=== PATIENT | female | born 1950 | race Caucasian/White ===

== ENCOUNTER 2021-07-14 23:35 | Observation (INO) | payer SELFPAY ==
[~2021-07-14] VITALS: Ht 185.4 cm; Wt 154.0 kg
[2021-07-14] MEDS ORDERED: DEXAMETHASONE 4 MG TABLET PO ONE (23:45)
[2021-07-14] MEDS ORDERED: IPRATRPIUM/ALBUTEROL 0.5/2.5MG 3 ML NEBU. NEB ONE (23:45)
--- NOTE | 2021-07-14 23:49 | PHYS DOC ---
Adult General HPI HPI Patient is a 70-year-old female with a past medical history significant for A. fib on Xarelto, COPD on 2 to 4 L of oxygen at home, CAD, with recent discharge from the hospital about 10 days ago after being in for pneumonia who presents to the emergency department with a chief complaint of productive cough and shortne ss of breath that started this morning. Denies recent traumas, travels, fevers, abdominal pain, nausea, vomiting, diarrhea, dysuria, hematuria or blood in the stool. States she was Covid negative at that time she was in the hospital. Review of Systems Review of Systems Review of systems otherwise unremarkable except noted in HPI Physical Exam Physical Exam Constitutional: Well developed, well nourished, no acute distress, non-toxic appearance. [] HENT: Normocephalic, atraumatic, bilateral external ears normal, oropharynx moist, no oral exudates, nose normal. [] Eyes: conjunctiva normal, no discharge. [] Neck: Normal range of motion, no tenderness, supple, no stridor. [] Cardiovascular:Heart rate regular rhythm, no murmur [] Lungs & Thorax: Bilateral, global rhonchi with end expiratory wheeze Abdomen: soft, no tenderness, no masses, no pulsatile masses. [] Skin: Warm, dry, no erythema, no rash. [] Back: No tenderness, no CVA tenderness. [] Extremities: No tenderness, no cyanosis, no clubbing, ROM intact, no edema. [] Neurologic: Alert and oriented X 3, no focal deficits noted. [] Psychologic: Affect normal, judgement normal, mood normal. [] EKG EKG [] Radiology/Procedures Radiology/Procedures [] Heart Score C/O Chest Pain: No Risk Factors: Risk Factors: DM, Current or recent (<one month) smoker, HTN, HLP, family his tory of CAD, obesity. Risk Scores: Risk Factors: DM, Current or recent (<one month) smoker, HTN, HLP, family history of CAD, obesity. Course & Med Decision Making Course & Med Decision Making Patient is a 70-year-old female who presents with a day of productive cough and shortness of breath, and states that she is out of oxygen at home and it is not supposed to be delivered until tomorrow. Vital signs notable for tachypnea and hypoxia on room air, patient on her home 2 L saturating at 96%. EKG noted above with no STEMI. Troponin normal. Laboratory analysis not concerning. Urinalysis not suggestive of urinary tract infection. Covid negative. History and presentation suggestive of COPD exacerbation. Given breathing treatment, steroids and doxycycline. Discussed all findings with patient and recommended admission to [facility] for continued evaluation, and treatment with oxygen and COPD exacerbation until she is able to get her oxygen at home. Patient grateful, verbalized understanding and agreed with plan of admission. [] Dragon Disclaimer Dragon Disclaimer This electronic medical record was generated, in whole or in part, using a voice recognition dictation system. Departure Departure: Impression: Primary Impression: COPD exacerbation Additional Impression: Oxygen dependent Disposition: ADMITTED INPATIENT Admitting Physician: Jr Garvin Condition: STABLE Problem Qualifiers CONRADO WALLACE MD Jul 14, 2021 23:49
--- NOTE | 2021-07-15 00:30 | EKG ---
[address] [address] Test Date: 2021-07-14 Test Time: 23:54:13 Pat Name: BELLA PATEL Department: Room: Gender: F Information Technology Specialist: RAKESH : 1950 Requested By: CONRADO WALLACE Order Number: [id number] Reading MD: Measurements Intervals [place] Rate: 63 P: 220 [place]: 118 QRS: -20 QRSD: 146 T: 18 QT: 464 QTc: 478 Interpretive Statements SINUS RHYTHM LEFTWARD AXIS RIGHT BUNDLE BRANCH BLOCK RVH WITH REPOLARIZATION ABNORMALITY ABNORMAL ECG RI6.02 No previous ECG available for comparison
[2021-07-15 00:39] LABS: BASO # 0.1 x10^3/uL (0.0-0.2); BASO % 1 % (0-3); EOS # 0.1 x10^3/uL (0.0-0.7); EOS % 1 % (0-3); HEMATOCRIT 35.8 % (36.0-47.0); HEMOGLOBIN 11.6 g/dL (12.0-15.5); LYMPH # 1.3 x10^3/uL (1.0-4.8); LYMPH % 18 % (24-48); MEAN CORPUSCULAR HEMOGLOBIN 31 pg (25-35); MEAN CORPUSCULAR HGB CONC 32 g/dL (31-37); MEAN CORPUSCULAR VOLUME 96 fL (79-100); MONO # 0.7 x10^3/uL (0.0-1.1); MONO % 9 % (0-9); NEUT # 5.4 x10^3uL (1.8-7.7); NEUT % 71 % (31-73); PLATELET COUNT 163 x10^3/uL (140-400); RED BLOOD COUNT 3.73 x10^6/uL (3.50-5.40); RED CELL DISTRIBUTION WIDTH 14.3 % (11.5-14.5); WHITE BLOOD COUNT 7.6 x10^3/uL (4.0-11.0)
[2021-07-15 00:48] LABS: CALCIUM 8.4 mg/dL (8.5-10.1); CREATININE 1.2 mg/dL (0.6-1.0); GFR 44.3; POTASSIUM 4.7 mmol/L (3.5-5.1)
[2021-07-15 00:54] LABS: ALBUMIN 2.7 g/dL (3.4-5.0); ALBUMIN/GLOBULIN RATIO 0.8 (1.0-1.7); TOTAL BILIRUBIN 0.3 mg/dL (0.2-1.0)
[2021-07-15] MEDS ORDERED: IV RINGERS SOLUTION,LACTATED 1,000 ML IV ONE (01:15)
[2021-07-15 01:27] LABS: BILIRUBIN,URINE NEG (NEG); CLARITY,URINE HAZY; COLOR,URINE YELLOW; GLUCOSE,URINE NEG (NEG)
[2021-07-15 01:28] LABS: BACTERIA,URINE MOD /HPF (0-FEW); NITRITE,URINE NEG (NEG); RBC,URINE 0 /HPF (0-2); SQUAMOUS EPITHELIAL CELL,UR OCC /LPF
[2021-07-15] MEDS ORDERED: DOXYCYCLINE HYCLATE 100 MG TABLET PO ONE (02:00)
--- NOTE | 2021-07-15 03:09 | RAD ---
CT chest without contrast: Reason for examination: Short of breath with productive cough. Helical images were obtained through the chest with no intravenous contrast administered. Reconstruct ion was performed in sagittal and coronal planes. Exposure: One or more of the following individualized dose reduction techniques were utilized for thi s examination: 1. Automated exposure control 2. Adjustment of the mA and/or kV according to patient size 3. Use of iterative reconstruction technique. There is a small hypodense lesion in the right lobe thyroid gland which may represent a small cyst. T he trachea and mainstem bronchi show no intraluminal lesions. No abnormality seen at the esophagus. T he thoracic aorta shows arteriosclerotic vascular calcification and some dilatation of the ascending thoracic aorta at 3.9 cm. The heart size is upper normal with no pericardial effusion. Lung alberto sh ow changes consistent with some atelectasis posteriorly at the left lung base. There are also multipl e noncalcified pulmonary nodules present with the largest nodule measuring 1.6 cm in size located in the right upper lobe. No consolidated infiltrates or pleural effusions are seen. No pneumothorax is e vident. No focal abnormalities are seen in the liver or spleen. No abnormalities of seen at the adrenal gland s. There does appear to be an anterior abdominal wall hernia containing bowel. IMPRESSION: Multiple noncalcified pulmonary nodules bilaterally with the largest in the right upper lobe measurin g 1.6 cm in size. Atelectasis at the left lung base. Large anterior wall hernia containing bowel. Electronically signed by: Katy Youssef MD (07/15/2021 3:07 AM) AWAIS
[2021-07-15 05:00] VITALS: BP 166/95
--- NOTE | 2021-07-15 07:25 | RAD ---
XR CHEST 1V INDICATION: SOB . COMPARISON STUDY: None. FINDINGS: Lungs: Normal lung volume. Mild bibasilar opacities. There are a couple of pulmonary nodules, better evaluated on same-day CT chest. The tracheobronchial tree and hilar structures are normal. Pleura: No pleural effusion or pneumothorax. Heart and Mediastinum: Cardiomegaly. Atherosclerosis of the thoracic aorta. Bones and Soft Tissues: The bones and soft tissues are within normal limits. IMPRESSION: 1. Mild bibasilar subsegmental atelectasis. 2. There are a couple pulmonary nodules which are better evaluated on same-day CT chest. Electronically signed by: Daquan Whitaker MD (07/15/2021 7:22 AM) [id number]
--- NOTE | 2021-07-15 09:58 | HP ---
ADMIT DATE: 07/15/2021 ADMISSION HISTORY AND PHYSICAL ATTENDING PHYSICIAN: Dr. Garvin. CHIEF COMPLAINT: Shortness of breath. HISTORY OF PRESENT ILLNESS: The patient is a 70-year-old female who lives in [place], [place]. She is here in town visiting her daughter. She was hospitalized 10 days ago in [place]. She had pneumonia. She got better. She has supplemental oxygen. Unfortunately, she ran out here. The home oxygen companies in the process of delivering it to her daughter's house the following morning. She has underlying COPD, uses a baseline 2-4 liters oxygen at home depending on activity. She has been reported COVID negative. She has chronic atrial fibrillation, on Xarelto. She has no new acute infiltrate. She was admitted then for supplemental oxygen until her home oxygen to be delivered. She basically ran out of supplemental oxygen. ALLERGIES: SHE HAS ALLERGIES TO BACITRACIN, CODEINE, NEOMYCIN, POLYMYXIN. CURRENT MEDICATIONS: At home include the following: She takes Xarelto and some other home meds, it is on her list. SOCIAL HISTORY: She was a smoker in the past. She denies any alcohol use. FAMILY HISTORY: Noncontributory. REVIEW OF SYSTEMS: Significant for dyspnea with exertion. No cough, congestion, or COVID exposure. All other systems reviewed and determined to be negative. PHYSICAL EXAMINATION: GENERAL: When I saw her, this is a pleasant, alert female. VITAL SIGNS: Her initial vital signs showed a blood pressure 151/76, her pulse is 63 and regular, oxygen saturation 95% on 2 liters nasal cannula. She was afebrile. HEENT: Head is without trauma. Pupils are reactive. Sclerae nonicteric. Oropharynx clear. NECK: Supple, no bruits. LUNGS: Clear with minimal rhonchi. CARDIOVASCULAR: Showed regular heart tones. ABDOMEN: Obese, protuberant. EXTREMITIES: Show some degenerative arthritis of the knees. No edema. NEUROLOGIC: Function focally intact. PERTINENT LABORATORY STUDIES: Hemoglobin 11.6 g/dL, white count 7600. Electrolytes all within normal range. Creatinine is 1.2 mg/dL. Nonfasting blood sugar 118. Troponin 0.017 and negative. She did have a CT of the chest here, which showed calcified pulmonary nodules, atelectasis, large anterior hernia containing bowel. No acute infiltrates identified. ASSESSMENT: 1. A 70-year-old female with hypoxemia. She ran out of oxygen. 2. Chronic obstructive pulmonary disease. 3. Recent pneumonia, treated. 4. Paroxysmal atrial fibrillation with chronic anticoagulation. PLAN: 1. Observation status. 2. She will continue her home meds at home. 3. Supplemental oxygen until we were able to get a fresh supply of oxygen to her. LENIN/CHANCE DR: Pool TID: [id number]
[2021-07-15 10:08] VITALS: BP 146/75
--- NOTE | 2021-07-15 11:09 | DS ---
DATE OF DISCHARGE: 07/15/2021 ATTENDING PHYSICIAN: Dr. Garvin. FINAL DISCHARGE DIAGNOSES: 1. Chronic obstructive pulmonary disease exacerbation. 2. Oxygen dependency. 3. Paroxysmal atrial fibrillation. 4. Chronic anticoagulation. HISTORY AND PHYSICAL: The patient is a 70-year-old female from out of town. She was visiting her daughter. Her oxygen tanks ran out and she did not have enough supplies. She was admitted overnight for supplemental oxygen until her company could bring her for a supply of oxygen for her tanks. PHYSICAL EXAMINATION: Please see the dictated note. PERTINENT LABORATORY AND X-RAY STUDIES: CT of the chest demonstrated no acute infiltrate. She has a large hiatal hernia, some atelectasis. No acute infiltrates identified. Lab work was unremarkable. Oxygen saturation was marginal on room air. She was given supplemental oxygen. COURSE IN THE HOSPITAL: The patient was given supplemental oxygen. She did well. Arrangements were then for home. Oxygen to be delivered by the company on , which is impressive. She will continue her Xarelto and other medication when she gets home. She was discharged then from our hospital in stable condition with explicit drug and followup care. Prior to discharge, her oxygen saturation was 95% on room air. ALYSSA DR: Pool TID: [id number]
--- NOTE | 2021-07-15 11:53 | NUR ---
PT DISCHARGED. PT STABLE AND PT'S OXYGEN COMPANY BROUGHT MORE TANKS FOR HER. PT'S FAMILY PICKED HER UP AND BROUGHT HER A BOTTLE. PT HAD HER BELONGINGS AND DISCHARGE PAPERWORK WITH HER.
== END 2021-07-15 11:55 | disposition home or self-care (01) ==
LOC: ER 23:35 → 1 SOUTH 07-15 03:02
PROVIDERS: ADMIT Hospitalist; ATTEND Hospitalist
DX: J44.0 Chronic obstructive pulmonary disease with (acute) lower respiratory infection (principal); I48.0 Paroxysmal atrial fibrillation; R09.02 Hypoxemia; J18.9 Pneumonia, unspecified organism; Z20.822 Contact with and (suspected) exposure to COVID-19; Z79.01 Long term (current) use of anticoagulants; Z87.891 Personal history of nicotine dependence; Z99.81 Dependence on supplemental oxygen; Z79.899 Other long term (current) drug therapy
CPT/HCPCS: 71045; 71250; 80053; 81001; 84484; 85025; 87086; 87426; 93005; 94640; 96360; 96361; 99285; G0378; J7120; J8540; U0003; G0379